=== PATIENT | female | born 1950 | race Two or more races ===

== ENCOUNTER 2021-10-14 18:58 | Emergency (ER) | payer MEDICAID, OTHER ==
[~2021-10-14] VITALS: Ht 160 cm; Wt 78.9 kg
[2021-10-14] MEDS ORDERED: CEPH-509 PO (19:41)
[2021-10-14] MEDS ORDERED: BAC09TP TOP (19:41)
[2021-10-14] MEDS ORDERED: TETANUS-DIPTH-ACEL PERTUSSIS 0.5ML SYR Tdap IM ONE ×2 (19:45→20:30)
[2021-10-14] MEDS ORDERED: BACITRACIN TOP OINT 1 UD PKG TOP ONE (20:15)
[2021-10-14] MEDS ORDERED: TETANUS IMMUNE GLOBULIN 250 UNIT/ML SYRG IM ONE (20:15)
[2021-10-14 22:49] VITALS: BP 148/70
[2021-10-15] MEDS ORDERED: CEPH500C PO (14:57)
== END 2021-10-14 23:52 | disposition home or self-care (01) ==
LOC: ER 19:00
DX: T22.211A Burn of second degree of right forearm, initial encounter (principal); E11.9 Type 2 diabetes mellitus without complications; X19.XXXA Contact with other heat and hot substances, initial encounter; Y93.89 Activity, other specified; Y92.89 Other specified places as the place of occurrence of the external cause; Y99.8 Other external cause status
CPT/HCPCS: 16020; 90471; 90715

== ENCOUNTER 2021-12-09 08:42 | Inpatient (IN) | payer MEDICAID ==
[~2021-12-09] VITALS: Ht 157.5 cm; Wt 80.9 kg
[~2021-12-09 08:42] MED LIST: BAC09TP TOP; CEPH-509 PO
[2021-12-09] MEDS ORDERED: cefTRIAXone 1GM/50ML D5W 50 ML IV ONE (09:15)
[2021-12-09] MEDS ORDERED: CLINDAMYCIN 600MG IV 50 ML IV ONE (09:15)
[2021-12-09] MEDS ORDERED: SODIUM CHLORIDE 0.9% 500 ML IV ONE (09:15)
[2021-12-09 09:53] LABS: Urine Bacteria FEW /hpf (None Seen); Urine Blood Negative /uL (Negative); Urine Budding Yeast OCCASIONAL /hpf (None Seen); Urine Specific Gravity 1.024 (1.001-1.035); Urine WBC 42 /hpf (0 - 5)
[2021-12-09] MEDS ORDERED: MORPHINE SULFATE INJECTION 2 MG/ML SYRG IV ONE (10:00)
[2021-12-09] MEDS ORDERED: ONDANSETRON HCL 4 MG/2 ML VIAL IV ONE (10:00)
[2021-12-09 10:17] LABS: Basophils # (auto) 0.1 10 ^3/uL (0-0.2); Basophils % (auto) 1.3 % (0.0-2.0); Eosinophils # (auto) 0.2 10 ^3/uL (0-0.8); Eosinophils % (auto) 2.5 % (0.0-7.0); Hematocrit 39.3 % (36.0-46.0); Lymphocytes # (auto) 1.5 10 ^3/uL (0.4-5.4); Lymphocytes % (auto) 20.1 % (10.0-50.0); Mean Corpuscular Hemoglobin 28.2 pg (28.0-32.0); Mean Corpuscular Hgb Conc. 33.1 g/dL (32.0-36.0); Mean Corpuscular Volume 85.1 fL (80.0-100.0); Monocytes # (auto) 0.4 10 ^3/uL (0-1.3); Monocytes % (auto) 5.7 % (0.0-12.0); Neutrophils # (auto) 5.4 10 ^3/uL (1.6-8.6); Neutrophils % (auto) 70.4 % (37.0-80.0); Nucleated Red Blood Cells % 0.1 %; Red Blood Cells 4.61 10^6/uL (4.0-5.20); Red Cell Distribution Width 16.3 % (11.8-14.3); White Blood Cell 7.7 10^3/uL (4.4-10.8)
[2021-12-09 10:33] LABS: Potassium 3.7 mmol/L (3.5-5.1)
[2021-12-09 10:41] LABS: Albumin 4.4 g/dL (3.4-5.0); BUN/Creatinine Ratio 18.3; Bilirubin, Total 0.5 mg/dL (0.2-1.0); Calcium 9.7 mg/dL (8.5-10.1); Total Protein 9.7 g/dL (6.4-8.2)
[2021-12-09] MEDS ORDERED: ONDANSETRON HCL 4 MG/2 ML VIAL IV PRN (12:45)
[2021-12-09] MEDS: SODIUM CHLORIDE 0.9% 1,000 ML IV SCH (13:08)
[2021-12-09] MEDS: MORPHINE SULFATE INJECTION 2 MG/ML SYRG IV PRN ×3 (15:03→22:20)
[2021-12-09 17:00] VITALS: BP 136/65
[2021-12-09] MEDS ORDERED: AMLO-489 PO (18:05)
[2021-12-09] MEDS ORDERED: GLIP5TAB12 PO (18:05)
[2021-12-09] MEDS ORDERED: METF-370 PO (18:05)
[2021-12-09] MEDS ORDERED: LORA-622 PO (18:05)
[2021-12-09] MEDS ORDERED: LISI20TA28 PO (18:05)
[2021-12-09] MEDS ORDERED: PIO30T PO (18:05)
[2021-12-09] MEDS ORDERED: ATOR20TA PO (18:05)
[2021-12-09] MEDS ORDERED: EMPA1TAB PO (18:05)
[2021-12-09] MEDS ORDERED: DEXTROSE (50%) 50ML SYRG IV PRN (18:45)
[2021-12-09 20:00] VITALS: BP 124/61
[2021-12-09] MEDS ORDERED: LISI-716 PO (20:06)
[2021-12-09 21:34] LABS: Cholesterol 116 mg/dL (< 200); Triglycerides 120 mg/dL (< 150)
[2021-12-09 21:36] LABS: HDL Cholesterol 36 mg/dL (40-59); LDL Cholesterol 64 mg/dL (< 100)
[2021-12-09 22:00] VITALS: BP 124/61
[2021-12-09] MEDS ORDERED: ACCU-CHEK COMFORT CURVE STRIP VI SCH (22:00)
[2021-12-09] MEDS: InsuLIN REG 1unit/0.01ml Soln (100units/ml) SC SCH (22:15)
[2021-12-09] MEDS: ACCU-CHEK COMFORT CURVE STRIP VI SCH (22:15)
[2021-12-10] MEDS: MORPHINE SULFATE INJECTION 2 MG/ML SYRG IV PRN ×4 (04:04→20:29)
[2021-12-10] MEDS: SODIUM CHLORIDE 0.9% 1,000 ML IV SCH ×3 (04:21→22:37)
[2021-12-10 05:00] VITALS: BP 137/58
[2021-12-10 06:27] LABS: Basophils # (auto) 0.1 10 ^3/uL (0-0.2); Basophils % (auto) 1.1 % (0.0-2.0); Eosinophils # (auto) 0.2 10 ^3/uL (0-0.8); Eosinophils % (auto) 3.3 % (0.0-7.0); Hematocrit 31.1 % (36.0-46.0); Hemoglobin 10.5 g/dL (12.2-16.2); Lymphocytes # (auto) 1.3 10 ^3/uL (0.4-5.4); Lymphocytes % (auto) 22.8 % (10.0-50.0); Mean Corpuscular Hemoglobin 28.3 pg (28.0-32.0); Mean Corpuscular Hgb Conc. 33.8 g/dL (32.0-36.0); Mean Corpuscular Volume 83.5 fL (80.0-100.0); Monocytes # (auto) 0.4 10 ^3/uL (0-1.3); Monocytes % (auto) 7.2 % (0.0-12.0); Neutrophils # (auto) 3.7 10 ^3/uL (1.6-8.6); Neutrophils % (auto) 65.6 % (37.0-80.0); Nucleated Red Blood Cells % 0.1 %; Red Blood Cells 3.72 10^6/uL (4.0-5.20); White Blood Cell 5.6 10^3/uL (4.4-10.8)
[2021-12-10 06:40] LABS: Calcium 8.9 mg/dL (8.5-10.1)
[2021-12-10 06:42] LABS: BUN/Creatinine Ratio 20.3
[2021-12-10 06:45] LABS: Albumin 3.3 g/dL (3.4-5.0); Bilirubin, Total 0.3 mg/dL (0.2-1.0); Total Protein 7.1 g/dL (6.4-8.2)
[2021-12-10] MEDS: ACCU-CHEK COMFORT CURVE STRIP VI SCH ×4 (07:28→21:28)
[2021-12-10] MEDS: InsuLIN REG 1unit/0.01ml Soln (100units/ml) SC SCH ×4 (07:28→22:00)
[2021-12-10 09:00] VITALS: BP 116/61
[2021-12-10] MEDS ORDERED: cefTRIAXone 1GM/50ML D5W 50 ML IV SCH (09:00)
[2021-12-10] MEDS: ENOXAPARIN SOD 30 MG/0.3 ML SYRINGE SC SCH (09:03)
[2021-12-10] MEDS ORDERED: IOHEXOL 300 MG/ML 100ML BOTTLE IJ ONE (12:36)
[2021-12-10] MEDS ORDERED: CLINDAMYCIN 900MG IV 50 ML IV ONE (12:45)
[2021-12-10 12:58] VITALS: BP 140/69
[2021-12-10] MEDS ORDERED: levoFLOXacin 500MG 100 ML IV ONE (13:45)
[2021-12-10] MEDS ORDERED: PIOG1TAB51 OR (13:55)
[2021-12-10] MEDS ORDERED: EMPA1TAB3 PO (13:55)
[2021-12-10] MEDS ORDERED: GLIP10TA9 PO (13:55)
[2021-12-10 17:00] VITALS: BP 118/61
[2021-12-10 22:00] VITALS: BP 112/50
[2021-12-10] MEDS: CLINDAMYCIN 600MG IV 50 ML IV SCH (22:28)
[2021-12-11 05:00] VITALS: BP 123/57
[2021-12-11 05:23] LABS: Basophils # (auto) 0.1 10 ^3/uL (0-0.2); Basophils % (auto) 0.9 % (0.0-2.0); Eosinophils # (auto) 0.2 10 ^3/uL (0-0.8); Eosinophils % (auto) 3.8 % (0.0-7.0); Hematocrit 29.6 % (36.0-46.0); Lymphocytes # (auto) 1.2 10 ^3/uL (0.4-5.4); Lymphocytes % (auto) 22.4 % (10.0-50.0); Mean Corpuscular Hemoglobin 28.2 pg (28.0-32.0); Mean Corpuscular Hgb Conc. 33.9 g/dL (32.0-36.0); Mean Corpuscular Volume 83.3 fL (80.0-100.0); Monocytes # (auto) 0.5 10 ^3/uL (0-1.3); Monocytes % (auto) 8.2 % (0.0-12.0); Neutrophils # (auto) 3.6 10 ^3/uL (1.6-8.6); Neutrophils % (auto) 64.7 % (37.0-80.0); Red Blood Cells 3.56 10^6/uL (4.0-5.20); Red Cell Distribution Width 16.3 % (11.8-14.3); White Blood Cell 5.6 10^3/uL (4.4-10.8)
[2021-12-11 05:33] LABS: Potassium 4.1 mmol/L (3.5-5.1)
[2021-12-11 05:38] LABS: Albumin 3.1 g/dL (3.4-5.0); BUN/Creatinine Ratio 17.1; Calcium 8.6 mg/dL (8.5-10.1)
[2021-12-11 05:40] LABS: Bilirubin, Total 0.3 mg/dL (0.2-1.0); Total Protein 6.8 g/dL (6.4-8.2)
[2021-12-11] MEDS: ACCU-CHEK COMFORT CURVE STRIP VI SCH ×4 (06:48→22:05)
[2021-12-11] MEDS: InsuLIN REG 1unit/0.01ml Soln (100units/ml) SC SCH ×4 (06:49→22:23)
[2021-12-11] MEDS: CLINDAMYCIN 600MG IV 50 ML IV SCH ×3 (06:54→22:19)
[2021-12-11 08:50] VITALS: BP 109/46
[2021-12-11] MEDS: levoFLOXacin 500MG 100 ML IV SCH (09:41)
[2021-12-11] MEDS: ATORVASTATIN 20 MG TAB PO SCH (09:41)
[2021-12-11] MEDS: ENOXAPARIN SOD 30 MG/0.3 ML SYRINGE SC SCH (09:42)
[2021-12-11] MEDS: MORPHINE SULFATE INJECTION 2 MG/ML SYRG IV PRN (09:42)
[2021-12-11] MEDS: amLODIPine BESYLATE 5 MG TAB PO SCH (11:59)
[2021-12-11] MEDS: LISINOPRIL 10 MG TAB PO SCH (12:00)
[2021-12-11 13:00] VITALS: BP 130/62
[2021-12-11] MEDS: SODIUM CHLORIDE 0.9% 1,000 ML IV SCH ×2 (13:31→18:30)
[2021-12-11] MEDS: HYDROcodone-ACET 5/325MG TAB PO PRN ×2 (13:36→22:18)
[2021-12-11 17:00] VITALS: BP 135/53
[2021-12-11 21:58] VITALS: BP 105/56
[2021-12-12] MEDS: SODIUM CHLORIDE 0.9% 1,000 ML IV SCH ×2 (03:45→17:43)
[2021-12-12 04:56] VITALS: BP 109/50
[2021-12-12] MEDS: CLINDAMYCIN 600MG IV 50 ML IV SCH ×3 (05:52→21:21)
[2021-12-12] MEDS: InsuLIN REG 1unit/0.01ml Soln (100units/ml) SC SCH ×4 (06:31→21:24)
[2021-12-12] MEDS: ACCU-CHEK COMFORT CURVE STRIP VI SCH ×4 (06:35→21:21)
[2021-12-12] MEDS: HYDROcodone-ACET 5/325MG TAB PO PRN ×2 (06:45→17:54)
[2021-12-12 08:00] VITALS: BP 119/53
[2021-12-12 09:00] VITALS: BP 119/53
[2021-12-12] MEDS: levoFLOXacin 500MG 100 ML IV SCH (10:21)
[2021-12-12] MEDS: ENOXAPARIN SOD 30 MG/0.3 ML SYRINGE SC SCH (10:22)
[2021-12-12] MEDS: LISINOPRIL 10 MG TAB PO SCH (10:22)
[2021-12-12] MEDS: amLODIPine BESYLATE 5 MG TAB PO SCH (10:22)
[2021-12-12] MEDS: ATORVASTATIN 20 MG TAB PO SCH (10:22)
[2021-12-12] MEDS: MORPHINE SULFATE INJECTION 2 MG/ML SYRG IV PRN (12:19)
[2021-12-12 12:55] VITALS: BP 122/44
[2021-12-12 16:30] VITALS: BP 121/62
[2021-12-12 22:00] VITALS: BP 94/40
[2021-12-13] MEDS: SODIUM CHLORIDE 0.9% 1,000 ML IV SCH ×2 (01:17→22:20)
[2021-12-13 05:00] VITALS: BP 104/37
[2021-12-13] MEDS: CLINDAMYCIN 600MG IV 50 ML IV SCH ×3 (05:25→21:43)
[2021-12-13] MEDS: HYDROcodone-ACET 5/325MG TAB PO PRN ×2 (05:25→17:13)
[2021-12-13] MEDS: ACCU-CHEK COMFORT CURVE STRIP VI SCH ×3 (06:27→17:08)
[2021-12-13] MEDS: InsuLIN REG 1unit/0.01ml Soln (100units/ml) SC SCH ×4 (06:31→21:46)
[2021-12-13 08:51] VITALS: BP 111/56
[2021-12-13] MEDS: levoFLOXacin 500MG 100 ML IV SCH (09:15)
[2021-12-13] MEDS: ENOXAPARIN SOD 30 MG/0.3 ML SYRINGE SC SCH (09:15)
[2021-12-13] MEDS: ATORVASTATIN 20 MG TAB PO SCH (09:15)
[2021-12-13] MEDS: amLODIPine BESYLATE 5 MG TAB PO SCH (09:16)
[2021-12-13] MEDS: LISINOPRIL 10 MG TAB PO SCH (09:17)
[2021-12-13] MEDS ORDERED: GADOTERATE MEG 7.5 MMOL/15ml INJ (0.5MMOL/ml) IV ONE (10:45)
[2021-12-13 13:00] VITALS: BP 122/64
[2021-12-13 17:28] VITALS: BP 105/59
[2021-12-13 22:00] VITALS: BP 136/63
[2021-12-14] MEDS: ACCU-CHEK COMFORT CURVE STRIP VI SCH ×5 (00:17→22:09)
[2021-12-14] MEDS: CLINDAMYCIN 600MG IV 50 ML IV SCH ×3 (06:31→23:11)
[2021-12-14] MEDS: InsuLIN REG 1unit/0.01ml Soln (100units/ml) SC SCH ×4 (06:33→22:00)
[2021-12-14 07:30] VITALS: BP 111/56
[2021-12-14 08:41] VITALS: BP 125/71
[2021-12-14] MEDS ORDERED: HYDROcodone-ACET 5/325MG TAB PO PRN (09:45)
[2021-12-14] MEDS ORDERED: KETOROLAC TROMETH 30 MG/ML 1ML VIAL IV PRN (09:45)
[2021-12-14] MEDS: levoFLOXacin 500MG 100 ML IV SCH (09:48)
[2021-12-14] MEDS: ENOXAPARIN SOD 30 MG/0.3 ML SYRINGE SC SCH (09:48)
[2021-12-14] MEDS: ATORVASTATIN 20 MG TAB PO SCH (09:49)
[2021-12-14] MEDS: LISINOPRIL 10 MG TAB PO SCH (09:50)
[2021-12-14] MEDS: KETOROLAC TROMETH 30 MG/ML 1ML VIAL IV PRN ×2 (10:55→17:02)
[2021-12-14 13:25] VITALS: BP 146/62
[2021-12-14] MEDS: SODIUM CHLORIDE 0.9% 1,000 ML IV SCH (15:27)
[2021-12-14 17:19] VITALS: BP 144/67
[2021-12-14 17:42] LABS: INR 1.09 (0.9-1.15); Partial Thromboplastin Time 29.3 sec (23.6-33.0)
[2021-12-14] MEDS: HYDROcodone-ACET 5/325MG TAB PO PRN (22:06)
[2021-12-15] MEDS: KETOROLAC TROMETH 30 MG/ML 1ML VIAL IV PRN ×5 (00:27→18:13)
[2021-12-15 05:00] VITALS: BP 102/41
[2021-12-15] MEDS: CLINDAMYCIN 600MG IV 50 ML IV SCH ×3 (06:38→22:03)
[2021-12-15] MEDS: ACCU-CHEK COMFORT CURVE STRIP VI SCH ×4 (06:39→22:04)
[2021-12-15] MEDS: InsuLIN REG 1unit/0.01ml Soln (100units/ml) SC SCH ×4 (06:55→22:03)
[2021-12-15] MEDS: SODIUM CHLORIDE 0.9% 1,000 ML IV SCH ×2 (07:40→23:11)
[2021-12-15 08:00] VITALS: BP 130/72
[2021-12-15] MEDS: ATORVASTATIN 20 MG TAB PO SCH (08:59)
[2021-12-15] MEDS: levoFLOXacin 500MG 100 ML IV SCH (09:04)
[2021-12-15] MEDS: ENOXAPARIN SOD 30 MG/0.3 ML SYRINGE SC SCH (09:09)
[2021-12-15] MEDS: LISINOPRIL 10 MG TAB PO SCH (09:09)
[2021-12-15] MEDS: HYDROcodone-ACET 5/325MG TAB PO PRN (10:57)
[2021-12-15 12:00] VITALS: BP 123/60
[2021-12-15 16:00] VITALS: BP 128/76
[2021-12-15 22:00] VITALS: BP 123/41
[2021-12-16 05:00] VITALS: BP 123/41
[2021-12-16] MEDS: CLINDAMYCIN 600MG IV 50 ML IV SCH ×3 (06:00→22:03)
[2021-12-16 06:07] LABS: Basophils # (auto) 0 10 ^3/uL (0-0.2); Basophils % (auto) 0.9 % (0.0-2.0); Eosinophils # (auto) 0.2 10 ^3/uL (0-0.8); Eosinophils % (auto) 4.8 % (0.0-7.0); Hematocrit 30.8 % (36.0-46.0); Hemoglobin 10.1 g/dL (12.2-16.2); Lymphocytes # (auto) 1.2 10 ^3/uL (0.4-5.4); Lymphocytes % (auto) 23.7 % (10.0-50.0); Mean Corpuscular Hemoglobin 28.4 pg (28.0-32.0); Mean Corpuscular Hgb Conc. 32.7 g/dL (32.0-36.0); Mean Corpuscular Volume 86.7 fL (80.0-100.0); Monocytes # (auto) 0.4 10 ^3/uL (0-1.3); Monocytes % (auto) 7.6 % (0.0-12.0); Neutrophils # (auto) 3.1 10 ^3/uL (1.6-8.6); Nucleated Red Blood Cells % 0.1 %; Red Blood Cells 3.55 10^6/uL (4.0-5.20); Red Cell Distribution Width 16.7 % (11.8-14.3)
[2021-12-16 06:18] LABS: Potassium 3.9 mmol/L (3.5-5.1)
[2021-12-16 06:24] LABS: BUN/Creatinine Ratio 20.8; Calcium 8.6 mg/dL (8.5-10.1); Magnesium 2.2 mg/dL (1.6-2.6)
[2021-12-16] MEDS: ACCU-CHEK COMFORT CURVE STRIP VI SCH ×4 (06:26→22:03)
[2021-12-16] MEDS: InsuLIN REG 1unit/0.01ml Soln (100units/ml) SC SCH ×4 (06:50→22:14)
[2021-12-16 08:40] VITALS: BP 117/59
[2021-12-16] MEDS: ATORVASTATIN 20 MG TAB PO SCH (10:07)
[2021-12-16] MEDS: levoFLOXacin 500MG 100 ML IV SCH (10:08)
[2021-12-16] MEDS: LISINOPRIL 10 MG TAB PO SCH (10:08)
[2021-12-16] MEDS: ENOXAPARIN SOD 30 MG/0.3 ML SYRINGE SC SCH (10:09)
[2021-12-16] MEDS: KETOROLAC TROMETH 30 MG/ML 1ML VIAL IV PRN ×2 (10:17→18:49)
[2021-12-16] MEDS: SODIUM CHLORIDE 0.9% 1,000 ML IV SCH (11:30)
[2021-12-16] MEDS: FAMOTIDINE 20 MG TAB PO SCH (11:39)
[2021-12-16 12:30] VITALS: BP 119/49
[2021-12-16 17:18] VITALS: BP 121/54
[2021-12-16 21:53] VITALS: BP 136/60
[2021-12-17 05:00] VITALS: BP 112/46
[2021-12-17] MEDS: ACCU-CHEK COMFORT CURVE STRIP VI SCH ×4 (06:04→21:00)
[2021-12-17] MEDS: CLINDAMYCIN 600MG IV 50 ML IV SCH ×3 (06:04→21:00)
[2021-12-17] MEDS: InsuLIN REG 1unit/0.01ml Soln (100units/ml) SC SCH ×4 (06:09→21:08)
[2021-12-17] MEDS: SODIUM CHLORIDE 0.9% 1,000 ML IV SCH (07:30)
[2021-12-17 08:26] VITALS: BP 120/60
[2021-12-17] MEDS: ATORVASTATIN 20 MG TAB PO SCH (09:06)
[2021-12-17] MEDS: levoFLOXacin 500MG 100 ML IV SCH (09:06)
[2021-12-17] MEDS: ENOXAPARIN SOD 30 MG/0.3 ML SYRINGE SC SCH (09:06)
[2021-12-17] MEDS: HYDROcodone-ACET 5/325MG TAB PO PRN ×2 (09:07→20:07)
[2021-12-17] MEDS: FAMOTIDINE 20 MG TAB PO SCH (09:08)
[2021-12-17] MEDS: LISINOPRIL 10 MG TAB PO SCH (09:08)
[2021-12-17 13:00] VITALS: BP 139/61
[2021-12-17] MEDS: KETOROLAC TROMETH 30 MG/ML 1ML VIAL IV PRN ×2 (14:28→21:13)
[2021-12-17 17:12] VITALS: BP 112/52
[2021-12-17 22:00] VITALS: BP 116/67
[2021-12-18 05:00] VITALS: BP 113/59
[2021-12-18 05:59] LABS: Basophils # (auto) 0 10 ^3/uL (0-0.2); Basophils % (auto) 0.6 % (0.0-2.0); Eosinophils # (auto) 0.4 10 ^3/uL (0-0.8); Eosinophils % (auto) 8.1 % (0.0-7.0); Hemoglobin 10.5 g/dL (12.2-16.2); Lymphocytes # (auto) 1.3 10 ^3/uL (0.4-5.4); Lymphocytes % (auto) 24.4 % (10.0-50.0); Mean Corpuscular Hemoglobin 27.5 pg (28.0-32.0); Mean Corpuscular Hgb Conc. 32.8 g/dL (32.0-36.0); Monocytes # (auto) 0.4 10 ^3/uL (0-1.3); Monocytes % (auto) 7.3 % (0.0-12.0); Neutrophils # (auto) 3.2 10 ^3/uL (1.6-8.6); Neutrophils % (auto) 59.6 % (37.0-80.0); Nucleated Red Blood Cells % 0.2 %; Red Blood Cells 3.82 10^6/uL (4.0-5.20); Red Cell Distribution Width 16.5 % (11.8-14.3); White Blood Cell 5.3 10^3/uL (4.4-10.8)
[2021-12-18] MEDS: ACCU-CHEK COMFORT CURVE STRIP VI SCH ×4 (06:05→21:27)
[2021-12-18] MEDS: CLINDAMYCIN 600MG IV 50 ML IV SCH ×3 (06:06→21:29)
[2021-12-18 06:15] LABS: Calcium 8.8 mg/dL (8.5-10.1); Potassium 4.3 mmol/L (3.5-5.1)
[2021-12-18] MEDS: InsuLIN REG 1unit/0.01ml Soln (100units/ml) SC SCH ×4 (06:16→21:37)
[2021-12-18] MEDS: KETOROLAC TROMETH 30 MG/ML 1ML VIAL IV PRN ×3 (06:16→21:30)
[2021-12-18 06:17] LABS: BUN/Creatinine Ratio 23.1
[2021-12-18 08:02] VITALS: BP 97/31
[2021-12-18] MEDS: FLORASTOR (S. BOULARDII) 250 MG CAP PO SCH (10:00)
[2021-12-18] MEDS: ATORVASTATIN 20 MG TAB PO SCH (10:05)
[2021-12-18] MEDS: LISINOPRIL 10 MG TAB PO SCH (10:05)
[2021-12-18] MEDS: FAMOTIDINE 20 MG TAB PO SCH (10:06)
[2021-12-18] MEDS: levoFLOXacin 500MG 100 ML IV SCH (10:09)
[2021-12-18] MEDS: ENOXAPARIN SOD 30 MG/0.3 ML SYRINGE SC SCH (10:14)
[2021-12-18] MEDS: HYDROcodone-ACET 5/325MG TAB PO PRN ×2 (10:25→17:03)
[2021-12-18 12:34] VITALS: BP 125/55
[2021-12-18 16:18] VITALS: BP 109/47
[2021-12-18 21:35] VITALS: BP 107/57
[2021-12-19 04:54] VITALS: BP 120/54
[2021-12-19] MEDS: ACCU-CHEK COMFORT CURVE STRIP VI SCH ×3 (06:18→17:29)
[2021-12-19] MEDS: CLINDAMYCIN 600MG IV 50 ML IV SCH ×2 (06:19→13:21)
[2021-12-19] MEDS: KETOROLAC TROMETH 30 MG/ML 1ML VIAL IV PRN (06:19)
[2021-12-19] MEDS: InsuLIN REG 1unit/0.01ml Soln (100units/ml) SC SCH ×3 (06:29→17:36)
[2021-12-19 08:15] VITALS: BP 123/56
[2021-12-19 08:40] VITALS: BP 123/56
[2021-12-19] MEDS: levoFLOXacin 500MG 100 ML IV SCH (10:22)
[2021-12-19] MEDS: ATORVASTATIN 20 MG TAB PO SCH (10:22)
[2021-12-19] MEDS: FAMOTIDINE 20 MG TAB PO SCH (10:23)
[2021-12-19] MEDS: FLORASTOR (S. BOULARDII) 250 MG CAP PO SCH (10:23)
[2021-12-19] MEDS: LISINOPRIL 10 MG TAB PO SCH (10:23)
[2021-12-19] MEDS: HYDROcodone-ACET 5/325MG TAB PO PRN (10:34)
[2021-12-19 12:35] VITALS: BP 109/55
[2021-12-19 14:20] VITALS: BP 109/55
[2021-12-19 16:41] VITALS: BP 138/55
[2021-12-19] MEDS ORDERED: HYDROCORTISONE 2.5% TOPICAL CREAM 30GM TUBE TOP ONE (16:45)
== END 2021-12-19 17:45 | disposition home or self-care (01) | DRG 383 ==
LOC: ER 08:42 → OVERFLOW 12:37 → EAST 16:42
PROVIDERS: ADMIT Registered Nurse; ATTEND Internal Medicine
PROC: 0H9KXZZ Drainage of Right Lower Leg Skin, External Approach (ICD-10-PCS; principal; 2021-12-15)
DX: L03.115 Cellulitis of right lower limb (principal); E11.9 Type 2 diabetes mellitus without complications; L02.415 Cutaneous abscess of right lower limb; E66.9 Obesity, unspecified; E78.5 Hyperlipidemia, unspecified; I10 Essential (primary) hypertension; S80.811A Abrasion, right lower leg, initial encounter; Z20.822 Contact with and (suspected) exposure to COVID-19; W10.9XXA Fall (on) (from) unspecified stairs and steps, initial encounter; Y93.01 Activity, walking, marching and hiking; Y92.89 Other specified places as the place of occurrence of the external cause; Z98.51 Tubal ligation status; Y99.8 Other external cause status; Z68.31 Body mass index [BMI] 31.0-31.9, adult
CPT/HCPCS: 36415; 71045; 73610; 73701; 73719; 76881; 76942; 80048; 80053; 80061; 81001; 82962; 83036; 83605; 83735; 85025; 85610; 85652; 85730; 87040; 87086; 93971; 96365; 96368; 96375; G0378; J0696; J1815; J1885; J1956; J2405; J3490

== ENCOUNTER 2024-05-11 09:51 | Emergency (ER) | payer MEDICAID ==
[~2024-05-11] VITALS: Ht 160 cm; Wt 66.8 kg
[~2024-05-11 09:51] MED LIST changes: +AMLO1TAB22 PO; +ATOR20TA PO; -BAC09TP TOP; -CEPH-509 PO; +EMPA1TAB3 PO; +GLIP10TA9 PO; +LISI10TA34 PO; +LISI20TA56 PO; +LORA-622 PO; +METF-370 PO; +PIOG1TAB51 OR
[2024-05-11 10:49] LABS: Basophils # (auto) 0 10 ^3/uL (0-0.2); Eosinophils # (auto) 0.1 10 ^3/uL (0-0.8); Hemoglobin 13.7 g/dL (12.2-16.2); Lymphocytes # (auto) 0.8 10 ^3/uL (0.4-5.4); Monocytes # (auto) 0.3 10 ^3/uL (0-1.3); Neutrophils # (auto) 2.6 10 ^3/uL (1.6-8.6)
[2024-05-11 10:50] LABS: Basophils % (auto) 0.6 % (0.0-2.0); Chloride 105 mmol/L (98-107); Eosinophils % (auto) 1.9 % (0.0-7.0); Hematocrit 39.4 % (36.0-46.0); Lymphocytes % (auto) 21.3 % (10.0-50.0); Mean Corpuscular Hemoglobin 35.7 pg (28.0-32.0); Mean Corpuscular Hgb Conc. 34.7 g/dL (32.0-36.0); Monocytes % (auto) 7.8 % (0.0-12.0); Neutrophils % (auto) 68.4 % (37.0-80.0); Nucleated Red Blood Cells % 0.1 %; Platelet Count (auto) 95 10^3/uL (140-450); Potassium 3.8 mmol/L (3.5-5.1); Red Blood Cells 3.82 10^6/uL (4.0-5.20); Red Cell Distribution Width 19.6 % (11.8-14.3); Sodium 140 mmol/L (136-145); White Blood Cell 3.9 10^3/uL (4.4-10.8)
[2024-05-11 10:51] LABS: Anion Gap 8 (5-15); Carbon Dioxide 27 mmol/L (20-30)
[2024-05-11 10:56] LABS: BUN/Creatinine Ratio 19.2 (10.0-20.0); Blood Urea Nitrogen 15 mg/dL (9-23); Glucose 171 mg/dL (74-106)
[2024-05-11 11:26] LABS: Anisocytosis Slight; Macrocytosis Slight; Platelet Estimate Decreased
[2024-05-11 11:48] LABS: INR 1.07 (0.9-1.15); Partial Thromboplastin Time 29.5 SEC (24.5-34.5); Prothrombin Time 11.3 sec (9.3-11.8)
[2024-05-11 13:50] LABS: Urine Bacteria None Seen /hpf (None Seen)
[2024-05-11 14:36] LABS: Urine Blood 2+ /uL (Negative); Urine Clarity Clear (Clear); Urine Color Light-Yellow (Yellow); Urine Protein, UAD Negative (Negative); Urine Specific Gravity 1.021 (1.001-1.035); Urine Urobilinogen Normal (Negative); Urine WBC 1 /hpf (0 - 5); Urine pH 5.5 (5.0-9.0)
[2024-05-11] MEDS ORDERED: IBU600T PO (15:13)
[2024-05-11 17:43] VITALS: BP 134/64; PULSE 66; RESP 15; TEMP 98.2; O2SAT 97
== END 2024-05-11 17:45 | disposition home or self-care (01) ==
LOC: ER 09:51
DX: D25.9 Leiomyoma of uterus, unspecified (principal); N92.1 Excessive and frequent menstruation with irregular cycle; E11.9 Type 2 diabetes mellitus without complications; E78.5 Hyperlipidemia, unspecified; I10 Essential (primary) hypertension; Z98.51 Tubal ligation status
CPT/HCPCS: 36415; 76830; 76856; 80048; 81001; 85025; 85610; 85730; 93005